=== PATIENT | female | born 1980 | race Caucasian/White ===

== ENCOUNTER → 2016-11-11 | Outpatient (CLI) | payer OTHER ==
[~2016-11-11] MED LIST: ESTR.3 PO; ZOLO20CO PO
--- NOTE | 2016-11-11 16:07 | RADRPT ---
EXAM DATE/TIME: 11/11/2016 00:00 COMPARISON: No previous studies available for comparison. Outside studies compared include 10/20/2016 abdomen and p veronica CT, 08/18/[address], and 12/01/[address] INDICATIONS : CT Guided Pancreatic Mass Biopsy FINDINGS: This patient has a history of a cervical cancer and a request was made for biopsy of the mass at the tail of the pancreas. The most recent examination documents a heterogeneous mass at the tail of the p ancreas measuring approximately 5.8 x 3.8 cm. Hounsfield measurements internally are approximately 78 . Correlating with prior PET CT examinations demonstrated a low density mass in the tail of the pancr eas dating back to August 2013 that measured up to 5.0 x 3.8 cm. On the prior PET/CT of demonstrated f luid attenuation internally and demonstrated no abnormal hypermetabolic activity. Review of the current examination demonstrates no safe window for percutaneous biopsy without ying ing the liver. CONCLUSION: 1. There is a mass in the tail the pancreas of uncertain etiology. In retrospect, a lesion was presen t in this location dating back to August 2013 with only slight change in size. The prior PET/CT also d emonstrated no abnormal hypermetabolic activity. However, the lesion has slightly increased in size a nd questionably appears solid internally on the most recent examination while it appeared more cystic previously. 2. Since there is not a good window for easy percutaneous biopsy, I would suggest performing pancreas MRI with and without intravenous contrast for further characterization to determine if the mass is t charlie solid or if it represents a chronic complex pseudocyst. An alternative would be endoscopic ultr asound evaluation with biopsy. Hamlet Neil MD on November 11, 2016 at 15:33 Board Certified Radiologist. This report was verified electronically.
== END ==
LOC: HRAD 13:55
PROVIDERS: ATTEND Radiology Diagnostic Ultrasound
DX: C53.9 Malignant neoplasm of cervix uteri, unspecified (principal)

== ENCOUNTER 2017-02-11 06:20 | Inpatient (IN) | payer OTHER ==
[~2017-02-11] VITALS: Ht 157.5 cm; Wt 51.2 kg
[2017-02-11] MEDS ORDERED: SERT-129 PO (06:57)
[2017-02-11] MEDS ORDERED: ESTR.9 PO (06:57)
[2017-02-11] MEDS ORDERED: MULT-65 PO (06:57)
[2017-02-11] MEDS ORDERED: LACTATED RINGER'S 1000 ML IV PRN (07:00)
[2017-02-11] MEDS ORDERED: METOPROLOL TARTRATE 25 MG TAB PO PRN (07:00)
[2017-02-11] MEDS ORDERED: INSULIN HUMAN REGULAR 1,000 UNITS/10 ML VIAL SQ PRN (07:00)
[2017-02-11] MEDS ORDERED: SODIUM CHLORID 0.9% 500 ML IV PRN (07:00)
[2017-02-11] MEDS ORDERED: POVIDONE IODINE 5% (ANTISEPSIS KIT) 4 APPLICATIONS EACH NARE PRN (07:00)
[2017-02-11] MEDS ORDERED: CHLORHEXIDINE GLUCONATE 2 % 1 PACK (2 CLOTHS) TOPICAL PRN (07:00)
[2017-02-11] MEDS ORDERED: ceFAZolin 2 GM PREMIX 50 ML IV SCH (07:00)
[2017-02-11 07:18] LABS: BASOPHIL % 0.4 % (0.0-2.0); EOSINOPHIL # 0.1 TH/MM3 (0-0.4); EOSINOPHIL % 1.4 % (0.0-4.0); HEMO FLAGS DIFF FINAL; LYMPH % 20.7 % (9.0-44.0); LYMPHOCYTE # 0.9 TH/MM3 (1.0-4.8); MEAN CELL VOLUME 89.6 FL (80.0-100.0); MEAN CORPUSCULAR HGB CONC 33.5 % (32.0-36.0); MONO % 9.9 % (0.0-8.0); NEUT % 67.6 % (16.0-70.0); PLATELET COUNT 234 TH/MM3 (150-450); RED BLOOD COUNT 4.01 MIL/MM3 (4.00-5.30); RED CELL DISTRIBUTION WIDTH 12.8 % (11.6-17.2); WHITE BLOOD COUNT 4.4 TH/MM3 (4.0-11.0)
[2017-02-11 07:42] LABS: BICARBONATE 26.9 MEQ/L (21.0-32.0)
[2017-02-11 07:45] LABS: POTASSIUM 4.9 MEQ/L (3.5-5.1)
[2017-02-11] MEDS ORDERED: MIDAZOLAM HCL 2 MG/2 ML VIAL ONE (08:03)
[2017-02-11] MEDS ORDERED: FAMOTIDINE 20 MG/2 ML VIAL ONE (08:03)
[2017-02-11] MEDS ORDERED: ACETAMINOPHEN 1000 MG/100 ML 100 ML IV ONE (08:07)
[2017-02-11] MEDS ORDERED: SUGAMMADEX SODIUM 200 MG/2 ML VIAL IV PUSH ONE ×2 (08:08)
[2017-02-11] MEDS ORDERED: KETAMINE HCL 500 MG/5 ML VIAL ONE (08:08)
[2017-02-11] MEDS ORDERED: ceFAZolin INJ 1,000 MG VIAL IV ONE (11:12)
[2017-02-11] MEDS ORDERED: ePHEDrine/NS 25 MG/5 ML SYR IV ONE (12:00)
[2017-02-11] MEDS ORDERED: PROPOFOL 200 MG/20 ML AMP IV ONE (12:00)
[2017-02-11] MEDS ORDERED: PHENYLEPH/NS 1000 MCG/10 ML SYR IV ONE (12:00)
[2017-02-11] MEDS ORDERED: ONDANSETRON HCL 4 MG/2 ML VIAL IV PUSH ONE (12:00)
[2017-02-11] MEDS ORDERED: NORMOSOL R INJ 1,000 ML IV ONE (12:00)
[2017-02-11] MEDS ORDERED: HYDROmorphone HCL PF 2 MG/ML VIAL ONE (12:01)
[2017-02-11] MEDS ORDERED: BUPIVACAINE LIPOSOME PF 1.3% 20 ML VIAL ONE (12:31)
[2017-02-11] MEDS ORDERED: Post-op Orders (for Pharmacy) MISC XX ONE (12:37)
[2017-02-11] MEDS: SODIUM CHLORIDE 0.9% FLUSH 10 ML FLUSH IV FLUSH SCH ×2 (13:00→20:09)
[2017-02-11] MEDS ORDERED: SODIUM CHLORIDE 0.9% FLUSH 10 ML FLUSH IV FLUSH PRN (13:00)
[2017-02-11] MEDS: D5-1/2 NS + KCL 20 MEQ INJ 1,000 ML IV SCH ×2 (13:00→22:48)
[2017-02-11] MEDS ORDERED: PROMETHAZINE HCL 25 MG SUPP RECTAL PRN (13:00)
[2017-02-11] MEDS ORDERED: BENZOCAINE 20% ORAL SPR 60 ML CAN MT PRN (13:00)
[2017-02-11] MEDS ORDERED: NALOXONE HCL 0.4 MG/ML AMP IV PRN ×2 (13:00)
[2017-02-11] MEDS ORDERED: diphenhydrAMINE HCL 50 MG/ML VIAL IV PRN (13:00)
[2017-02-11] MEDS: MORPHINE SULFATE 30 MG/30 ML PCA IV SCH (13:40)
[2017-02-11 13:43] VITALS: BP 110/64; PULSE 89; RESP 18; TEMP 95.9; O2SAT 93
[2017-02-11 16:00] VITALS: BP 110/64; PULSE 77; RESP 18; TEMP 95.8; O2SAT 95
[2017-02-11] MEDS: ACETAMINOPHEN 1000 MG/100 ML VIAL IV SCH ×2 (16:04→20:08)
[2017-02-11] MEDS: PANTOPRAZOLE SODIUM 40 MG VIAL IV SCH (16:04)
[2017-02-11] MEDS: LORazepam 2 MG/ML VIAL IVP PRN (16:15)
--- NOTE | 2017-02-11 16:41 | EKG ---
Date Performed: 02/11/2017 Time Performed: 07:08:21 PTAGE: 36 years EKG: Sinus rhythm NORMAL ECG NO PREVIOUS TRACING DOCTOR: Kellee Martinez Interpretating Date/Time 02/11/2017 16:38:34
[2017-02-11] MEDS ORDERED: PLEASE DISCONTINUE PREVIOUS SUPPLEMENTAL SCALE INSULIN ORDERS ONE (17:15)
[2017-02-11] MEDS ORDERED: GLUCAGON 1 MG/ML VIAL OTHER PRN (17:15)
[2017-02-11] MEDS ORDERED: DEXTROSE 50% IN WATER 50 ML VIAL(D50) IV PUSH PRN (17:15)
[2017-02-11 20:00] VITALS: BP 108/65; PULSE 77; RESP 18; TEMP 96.5; O2SAT 97
[2017-02-11] MEDS: LOW DOSE INSULIN NOVOLIN REGULAR SUPPLEMENTAL SCALE SQ SCH (20:09)
[2017-02-11] MEDS: PCA - TOTAL MG MORPHINE DELIVERED PER SHIFT SCH (22:00)
[2017-02-12] VITALS (7 sets, daily range): BP systolic 98–123; BP diastolic 57–72; PULSE 74–101; RESP 16–18; TEMP 96.7–99.6; O2SAT 93–97
[2017-02-12] MEDS: ACETAMINOPHEN 1000 MG/100 ML VIAL IV SCH ×4 (01:38→20:27)
[2017-02-12 05:15] LABS: BICARBONATE 25.7 MEQ/L (21.0-32.0); POTASSIUM 4.1 MEQ/L (3.5-5.1)
[2017-02-12 05:22] LABS: AUTOMATED NEUTROPHIL # 8.6 TH/MM3 (1.8-7.7); BASOPHIL % 0.2 % (0.0-2.0); EOSINOPHIL % 0.1 % (0.0-4.0); HEMATOCRIT 35.6 % (35.0-46.0); HEMO FLAGS DIFF FINAL; LYMPH % 11.9 % (9.0-44.0); LYMPHOCYTE # 1.2 TH/MM3 (1.0-4.8); MEAN CELL VOLUME 90.5 FL (80.0-100.0); MEAN CORPUSCULAR HEMOGLOBIN 30.8 PG (27.0-34.0); MONO % 5.5 % (0.0-8.0); NEUT % 82.3 % (16.0-70.0); PLATELET COUNT 212 TH/MM3 (150-450); RED BLOOD COUNT 3.93 MIL/MM3 (4.00-5.30); RED CELL DISTRIBUTION WIDTH 12.8 % (11.6-17.2); WHITE BLOOD COUNT 10.4 TH/MM3 (4.0-11.0)
[2017-02-12 05:35] LABS: CALCIUM-PROTEIN CORRECTED 8.2 MG/DL (8.5-10.1)
[2017-02-12] MEDS: PCA - TOTAL MG MORPHINE DELIVERED PER SHIFT SCH ×3 (06:00→22:00)
[2017-02-12] MEDS: MORPHINE SULFATE 30 MG/30 ML PCA IV SCH (06:09)
[2017-02-12] MEDS: LOW DOSE INSULIN NOVOLIN REGULAR SUPPLEMENTAL SCALE SQ SCH ×4 (06:15→20:32)
[2017-02-12] MEDS: SERTRALINE HCL 100 MG TAB PO SCH (08:34)
[2017-02-12] MEDS: SODIUM CHLORIDE 0.9% FLUSH 10 ML FLUSH IV FLUSH SCH ×2 (08:34→20:27)
[2017-02-12] MEDS: D5-1/2 NS + KCL 20 MEQ INJ 1,000 ML IV SCH ×2 (08:34→18:48)
--- NOTE | 2017-02-12 08:46 | MP ---
cc: LEO JORDAN DATE OF SURGERY 02/11/2017 PREOPERATIVE DIAGNOSES 1. Pancreatic body mass. 2. History of cervical carcinoma. POSTOPERATIVE DIAGNOSES 1. Pancreatic body mass. 2. History of cervical carcinoma. PROCEDURE 1. Laparoscopic-assisted distal pancreatectomy and splenectomy. 2. Laparoscopic mobilization of splenic flexure. ANESTHESIA General and regional TAP block with Exparel. ATTENDING SURGEON MD Giles ENGINEERING VICE PRESIDENT Davey Colindres MD ESTIMATED BLOOD LOSS 50 cc. FINDINGS A large between 6 and 8 cm irregular tumor in the body of the pancreas grossly and not involving the neck of the pancreas and negative on frozen section, otherwise normal intraabdominal findings. INDICATIONS FOR PROCEDURE The patient is a 36-year-old female with a history of cervical cancer status post radiation who has no evidence of disease. Follow-up scan did show a lesion in the pancreas that was persistent from previous workup during her treatment for cervical cancer. The patient underwent workup for this pancreatic mass including EUS and biopsy and this was concerning clinically although not definitively for pseudopapillary tumor of the pancreas. We discussed these findings with the patient and her and stated that I did recommend surgery for complete oncologic resection to obtain diagnosis and for potential treatment of possible pseudopapillary tumor. The risks, benefits and alternatives were discussed including the risk of pancreatic leak and they wished to proceed with surgery. PROCEDURE The patient was taken to the operating room, placed in supine position, placed under general endotracheal anesthesia. The patient's abdomen was prepped and draped in the usual sterile fashion. Time-out was performed. Entered the abdomen through a Aguilar direct entry technique just above the umbilicus. We placed a 10-mm trocar into the abdomen under direct visualization and insufflated the abdomen. We surveyed the abdomen with a 5-mm, 30-degree camera and there was no evidence of any complication or entry. There was no intraabdominal pathology noted. There was no carcinomatosis or concern for any malignancy. We did placed a 5-mm port in the subxiphoid position and 5-minute port in the left upper quadrant and a third 5-mm port in the left upper quadrant, all under visualization of the laparoscope. We then were able to grasp the stomach and used the laparoscopic LigaSure to open the gastrocolic ligament completely and took down all of the short gastrics from the spleen all the way to the diaphragm and marine. Then we were able to retract the stomach anteriorly and later with the help of a Letha Flex liver retractor and exposed the tumor. The tumor was quite large in the body of the pancreas and there were multiple very large collateral veins engulfing the tumor that could clearly be coming from the splenic vein or deeper into the retroperitoneum. Exposure was very difficult laparoscopically. At this point in time it was suspected that this patient would likely need a laparoscopic-assisted procedure as open portion would be needed to safely dissect out the venous vasculature around the portal vein and SMV and IMV and splenic veins. We continued our dissection. We took down the splenic flexure laparoscopically again using the laparoscopic LigaSure. Once we had completely freed up the spleen and distal pancreas and the tumor from the surrounding peritoneum and retroperitoneum, this was quite mobile although the spleen was still attached by some posterior attachments of the diaphragm. At this point in time we turned to our planned open portion. We did connect the 10-mm port site and a 5-mm port with a 15 blade scalpel, using the Bovie electrocautery to dissect the subcu tissue and open the midline fascia the full length of the incision. We took down the falciform ligament using a LigaSure device. We placed an Zachary extra-large wound retractor and protector into the wound. We placed a Bookwalter with a body blade, retracted up on the ribs to gain better exposure at the costal margin. We then were able to start our dissection. We then dissected at the base of the mesentery, ligament of Treitz and clearly identified the SMV and IMV. We dissected above the pancreas and identified the celiac artery stump and the left gastrohepatic artery and the splenic artery coursing just superior to the upper border of the pancreas. We dissected the splenic artery easily with a right-angle and placed a vascular load on the Ethicon vascular laparoscopic stapler. We placed a large hemoclip on the proximal artery as well. We then continued our dissection superiorly and inferiorly. We were able to come along the SMV as it coursed under the spleen without difficulty. The tumor was between 1 and 2 cm away from the neck of the pancreas which was overlying the SMV. We placed a white load on the [place] 60 stapler across the pancreas and closed this slowly over approximately 4 minutes and divided the neck of the pancreas without difficulty. At this point time we did encounter multiple large collaterals coming from the IMV, the splenic vein and the retroperitoneum over the tumor. We did then dissect two of these large branches out and divided them with the vascular stapler and also used fascial stapler to divide the splenic vein just distal to the IMV. Once we had completely dissected all the vasculature from the pancreas and spleen and distally and we had excellent hemostasis. He has the LigaSure to continue to divide some retroperitoneal tissue posterior to the pancreas and removed the tumor, pancreas and spleen from the patient without difficulty. This was sent for frozen section and evaluation. This was found to be negative on frozen section. At this point in time we had excellent hemostasis, no signs of any complications. The staple line was intact with no signs of leak at her pancreas and we turned our attention towards closure. We placed a 19-Latvian round Manuel drain through the port incision on the left of the abdomen and we placed this in the splenic fossa and tip up towards the lesser sac by the pancreas stump. We did place a small amount Surgicel SNoW at the vasculature as well. We placed the omentum over the area of the vasculature and pancreas stump as well. We made sure the stomach lay in good position and made sure the nasogastric tube was in good position. For closure we closed the fascia with #1 looped PDS suture, closed the skin with 3-0 Vicryl and 4-0 Monocryl and Dermabond. 4-0 Monocryl was used at the port site on the right and on the left sided a drain was sutured in place with a nylon suture and placed to bulb suction. The patient was discontinued from anesthesia and taken to the PACU in stable condition. The patient tolerated the procedure well with no apparent complications. All counts were correct and I was present and scrubbed for the entire procedure. MD ADAM Trinidad/JOSE /1:36 PM /8:10 AM
[2017-02-12] MEDS: ENOXAPARIN SODIUM 40 MG/0.4 ML SYRINGE SQ SCH (10:55)
[2017-02-12] MEDS: PANTOPRAZOLE SODIUM 40 MG VIAL IV SCH (13:27)
--- NOTE | 2017-02-12 15:21 | HHI.PR ---
Subjective Subjective Notes Has already been OOB to chair today at bedside Objective Vitals/I&O Vital Signs Date Time Temp Pulse Resp B/P (MAP) Pulse Ox O2 Delivery O2 Flow Rate FiO2 02/12/17 13:26 16 02/12/17 12:00 96.9 81 98/57 (71) 93 02/11/17 13:15 Nasal Cannula 2 Labs Laboratory Tests Test 02/12/17 04:18 White Blood Count 10.4 Red Blood Count 3.93 Hemoglobin 12.1 Hematocrit 35.6 Mean Corpuscular Volume 90.5 Mean Corpuscular Hemoglobin 30.8 Mean Corpuscular Hemoglobin Concent 34.0 Red Cell Distribution Width 12.8 Platelet Count 212 Mean Platelet Volume 9.5 Neutrophils (%) (Auto) 82.3 Lymphocytes (%) (Auto) 11.9 Monocytes (%) (Auto) 5.5 Eosinophils (%) (Auto) 0.1 Basophils (%) (Auto) 0.2 Neutrophils # (Auto) 8.6 Lymphocytes # (Auto) 1.2 Monocytes # (Auto) 0.6 Eosinophils # (Auto) 0.0 Basophils # (Auto) 0.0 CBC Comment DIFF FINAL Differential Comment Hematology Comments Blood Urea Nitrogen 5 Creatinine 0.64 Random Glucose 144 Total Protein 5.3 Calcium Level 7.2 Sodium Level 141 Potassium Level 4.1 Chloride Level 106 Carbon Dioxide Level 25.7 Anion Gap 9 Estimat Glomerular Filtration Rate 104 Protein Corrected Calcium 8.2 Cardiovascular: Regular Lungs: Clear Abdomen: Other (incision sites c/d/i; BRANDY with SS drainage ) Extremities: No edema Narrative Exam B[place] in place A/P Assessment and Plan 36 year old female POD1 lap assisted distal pancreatectomy and splenectomy -Labs stable -DC NGT -Ice chips -DC Bingham in AM -IVF -MAIL PROCESSOR -OOB as tolerated -IS Attending Statement The exam, history, and the medical decision-making described in the above note were completed with the assistance of the mid-level provider. I reviewed and agree with the findings presented. I attest that I had a [id number] encounter with the patient on the same day, and personally performed and documented my assessment and findings in the medical record. Abdominal exam: stable, no peritonitis, incision healing well OOB when pain controlled, DC Melissa Hammonds Feb 12, 2017 15:21 Ray Skaggs MD Mar 17, 2017 22:56
[2017-02-12] MEDS: ONDANSETRON HCL 4 MG/2 ML VIAL IV PRN ×2 (17:25→23:34)
[2017-02-12] MEDS: LORazepam 2 MG/ML VIAL IVP PRN (23:44)
[2017-02-13] VITALS: BP 118/68; PULSE 92; RESP 17; TEMP 99.8; O2SAT 97
[2017-02-13] MEDS: D5-1/2 NS + KCL 20 MEQ INJ 1,000 ML IV SCH ×2 (03:05→14:48)
[2017-02-13] MEDS: ACETAMINOPHEN 1000 MG/100 ML VIAL IV SCH ×4 (03:06→21:12)
[2017-02-13 04:00] VITALS: BP 113/60; PULSE 88; RESP 17; TEMP 99.2; O2SAT 97
[2017-02-13] MEDS: LOW DOSE INSULIN NOVOLIN REGULAR SUPPLEMENTAL SCALE SQ SCH ×4 (05:55→21:00)
[2017-02-13] MEDS: PCA - TOTAL MG MORPHINE DELIVERED PER SHIFT SCH ×2 (05:56→14:00)
[2017-02-13 08:00] VITALS: BP 110/72; PULSE 96; RESP 17; TEMP 97.1; O2SAT 97
[2017-02-13] MEDS: SERTRALINE HCL 100 MG TAB PO SCH (08:47)
[2017-02-13] MEDS: SODIUM CHLORIDE 0.9% FLUSH 10 ML FLUSH IV FLUSH SCH ×2 (08:47→21:00)
[2017-02-13] MEDS: ENOXAPARIN SODIUM 40 MG/0.4 ML SYRINGE SQ SCH (11:59)
[2017-02-13 12:00] VITALS: BP 110/70; PULSE 87; RESP 17; TEMP 97.4; O2SAT 97
[2017-02-13] MEDS: ONDANSETRON HCL 4 MG/2 ML VIAL IV PRN (14:47)
[2017-02-13] MEDS: PANTOPRAZOLE SODIUM 40 MG VIAL IV SCH (14:47)
--- NOTE | 2017-02-13 15:52 | HHI.PR ---
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 I reviewed and agree with the findings presented. I attest that I had a [id number] encounter with the patient on the same day, and personally performed and documented my assessment and findings in the medical record. Abdominal exam: stable postop, drain clear OOB in chair await bowel function Melissa Kasper Feb 13, 2017 15:52 Ray Skaggs MD Mar 17, 2017 22:57
[2017-02-13 16:00] VITALS: BP 118/77; PULSE 86; RESP 17; TEMP 99.1; O2SAT 96
[2017-02-13] MEDS: KETOROLAC TROMETHAMINE 60 MG/2 ML (IM) VIAL IM PRN (17:35)
[2017-02-13 20:00] VITALS: BP 115/71; PULSE 69; RESP 17; TEMP 97.5; O2SAT 98
[2017-02-14] VITALS: BP 124/57; PULSE 72; RESP 17; TEMP 98; O2SAT 98
[2017-02-14] MEDS: ACETAMINOPHEN 1000 MG/100 ML VIAL IV SCH ×4 (04:27→21:31)
[2017-02-14] MEDS: D5-1/2 NS + KCL 20 MEQ INJ 1,000 ML IV SCH ×3 (04:27→16:37)
[2017-02-14] MEDS: LOW DOSE INSULIN NOVOLIN REGULAR SUPPLEMENTAL SCALE SQ SCH ×4 (06:05→21:00)
[2017-02-14 08:00] VITALS: BP 110/71; PULSE 70; RESP 18; TEMP 96; O2SAT 98
[2017-02-14] MEDS: SODIUM CHLORIDE 0.9% FLUSH 10 ML FLUSH IV FLUSH SCH ×2 (09:00→21:30)
[2017-02-14] MEDS: SERTRALINE HCL 100 MG TAB PO SCH (10:28)
[2017-02-14] MEDS: KETOROLAC TROMETHAMINE 60 MG/2 ML (IM) VIAL IM PRN (11:07)
[2017-02-14 12:00] VITALS: BP 104/70; PULSE 68; RESP 16; TEMP 97.4; O2SAT 98
[2017-02-14] MEDS: PANTOPRAZOLE SODIUM 40 MG VIAL IV SCH (13:05)
[2017-02-14] MEDS: ENOXAPARIN SODIUM 40 MG/0.4 ML SYRINGE SQ SCH (13:05)
[2017-02-14 16:00] VITALS: BP 107/70; PULSE 67; RESP 17; TEMP 98.3; O2SAT 96
--- NOTE | 2017-02-14 19:54 | HHI.PR ---
Subjective Subjective Notes feels better Objective Vitals/I&O Vital Signs Date Time Temp Pulse Resp B/P (MAP) Pulse Ox O2 Delivery O2 Flow Rate FiO2 02/14/17 16:00 98.3 67 17 107/70 (82) 96 02/11/17 13:15 Nasal Cannula 2 Cardiovascular: Regular Lungs: Clear Abdomen: Non-distended, Post-op tenderness Extremities: Perfused A/P Assessment and Plan 36yo female with pancreatic mass, s/p resection, stable. advance diet OOB keep BRANDY HLIV path: benign Ray Skaggs MD Feb 14, 2017 19:53
[2017-02-14 20:00] VITALS: BP 115/67; PULSE 66; RESP 22; TEMP 99.2; O2SAT 96
[2017-02-14] MEDS ORDERED: ACETAMINOPHEN/HYDROcodone 325 MG/5 MG TAB PO PRN ×2 (20:00)
[2017-02-15] VITALS: BP 99/66; PULSE 69; RESP 20; TEMP 97; O2SAT 97
[2017-02-15] MEDS: LOW DOSE INSULIN NOVOLIN REGULAR SUPPLEMENTAL SCALE SQ SCH (06:16)
[2017-02-15 08:00] VITALS: BP 111/72; PULSE 70; RESP 17; TEMP 96.7; O2SAT 97
[2017-02-15] MEDS: SERTRALINE HCL 100 MG TAB PO SCH (08:41)
[2017-02-15] MEDS: KETOROLAC TROMETHAMINE 60 MG/2 ML (IM) VIAL IM PRN (08:41)
[2017-02-15 12:00] VITALS: BP 127/70; PULSE 67; RESP 18; TEMP 99.3; O2SAT 97
[2017-02-15] MEDS: PANTOPRAZOLE SODIUM 40 MG VIAL IV SCH (12:59)
[2017-02-15] MEDS: ENOXAPARIN SODIUM 40 MG/0.4 ML SYRINGE SQ SCH (13:00)
--- NOTE | 2017-02-15 14:52 | HHI.PR ---
Subjective Subjective Notes no issues, +bms and eating Objective Vitals/I&O Vital Signs Date Time Temp Pulse Resp B/P (MAP) Pulse Ox O2 Delivery O2 Flow Rate FiO2 02/15/17 12:00 99.3 67 18 127/70 (89) 97 02/11/17 13:15 Nasal Cannula 2 Cardiovascular: Regular Lungs: Clear Abdomen: Other (incisional tenderness hillary serosang) A/P Assessment and Plan s/p distal panc spleen PLAN OOB PO Pain control reg diet d/c home with Jaems Renee MD Feb 15, 2017 14:52
--- NOTE | 2017-03-11 10:25 | HHI.DS ---
Discharge Summary Admission Date Feb 11, 2017 at 06:20 Discharge Date: Feb 15, 2017 Admitting Diagnosis Brief History 36 year old female s/p lap assisted distal pancreatectomy and splenectomy PE at Discharge Alert and awake Cardio: RRR Resp: CTAB Abd: incision c/d/i; mild post op tenderness Hospital Course This is a 36 year old female s/p lap assisted distal pancreatectomy and splenectomy. The patient's diet was advanced as tolerated. Her pain was controlled using oral pain medications. She was able to ambulate independently. She will follow up in the office with Dr. Skaggs. Pt Condition on Discharge: Good Discharge Disposition: Discharge Home Discharge Instructions DIET: Follow Instructions for: As Tolerated, No Restrictions Activities you can perform: See Additionl Instruction Other Activity Instructions: ok for shower no bath tub, no heavy lifting Melissa Kasper Mar 11, 2017 10:25
== END 2017-02-15 17:50 | disposition home or self-care (01) | DRG 407 ==
LOC: HSDI 06:20 → N07B 13:40
PROVIDERS: ADMIT Surgery; ATTEND Surgery
PROC: 3E0T3CZ (ICD-10-PCS; 2017-02-11)
PROC: 0FBG0ZZ Excision of Pancreas, Open Approach (ICD-10-PCS; principal; 2017-02-11 08:14)
PROC: 07TP0ZZ Resection of Spleen, Open Approach (ICD-10-PCS; 2017-02-11 08:14)
DX: D13.6 Benign neoplasm of pancreas (principal); F32.9 Major depressive disorder, single episode, unspecified; Z53.31 Laparoscopic surgical procedure converted to open procedure; Z85.41 Personal history of malignant neoplasm of cervix uteri; Z87.891 Personal history of nicotine dependence; Z92.21 Personal history of antineoplastic chemotherapy; Z92.3 Personal history of irradiation
CPT/HCPCS: 80048; 82948; 84155; 85025; 86850; 86900; 86901; 86920; 88305; 88307; 88309; 88331; 93005; 94150; C9113; C9290; J0131; J0690; J1170; J1650; J1885; J2060; J2250; J2270; J2370; J2405; J3010; J3480; J7120